=== PATIENT | male | born 1970 ===

== ENCOUNTER 2017-04-07 19:48 | Emergency (ER) | payer BC ==
[2017-04-07 20:04] VITALS: BP 147/82; PULSE 73; RESP 18; TEMP 98; O2SAT 100
--- NOTE | 2017-04-07 20:36 | ED PDOC ---
Lower Extremity Pain/Injury Time Seen by Provider: 04/07/17 19:58 Chief Complaint (Nursing): Lower Extremity Problem/Injury History Per: Patient History/Exam Limitations: no limitations Onset/Duration Of Symptoms: Other (2 months) Current Symptoms Are (Timing): Still Present Additional Complaint(s): Gino Gastelum, a 47 year old male, presents to the ED with left knee pain he has been experiencing for 2 months. The patient reports that 2 months prior to that he injured his knee in a twisting motion. He states that the pain worsens with movement and he takes motrin but it offers no relief. Denies numbness, tingling, calf pain. Past Medical History Reviewed: Historical Data, Nursing Documentation, Vital Signs Vital Signs: Last Vital Signs Temp 98 F 04/07/17 20:02 Pulse 73 04/07/17 20:02 Resp 18 04/07/17 20:02 BP 147/82 04/07/17 20:02 Pulse Ox 100 04/07/17 20:02 - Medical History PMH: Diabetes, HTN - Family History Family History: States: Unknown Family Hx - Home Medications Home Medications: Ambulatory Orders Medication Instructions Recorded Naproxen 500 mg PO BID PRN #20 tab 06/15/16 Meloxicam [Mobic] 1 - 2 tab PO DAILY PRN #15 tab 04/07/17 - Allergies Allergies/Adverse Reactions: Allergies Allergy/AdvReac Type Severity Reaction Status Date / Time No Known Allergies Allergy Verified 06/15/16 21:31 Review of Systems Musculoskeletal: Positive for: Other (Left knee pain;Denies numbness and tingling to knee; Denies calf pain.) Physical Exam - Reviewed Nursing Documentation Reviewed: Yes Vital Signs Reviewed: Yes - Physical Exam Appears: Positive for: Non-toxic, No Acute Distress Pulses-Dorsalis Pedis (L): 2+ Extremity: Positive for: Normal ROM, Deformity (NO deformity to left knee.), Other (No warmth or erythema to left knee; Left knee positive crepitus.). Negative for: Tenderness (No tendernes to left knee.), Calf Tenderness (No calf tenderness bilaterally.), Swelling (No swelling to left knee.) Neurologic/Psych: Positive for: Alert, Oriented, Gait - ECG O2 Sat by Pulse Oximetry: 100 (RA) Pulse Ox Interpretation: Normal Medical Decision Making Medical Decision Makin:58 Initial Impression: 47 year old male presenting with left knee pain Initial Plan: * Toradol 15mg IM Scribe Attestation Documented by Jenna Benton acting as a scribe for Antwan Orellana PA-C. Scribe Attestation All medical record entries made by the Scribe were at my direction and personally dictated by me. I have reviewed the chart and agree that the record accurately reflects my personal performance of the history, physical exam, medical decision making, and the department course for this patient. I have also personally directed, reviewed, and agree with the discharge instructions and disposition. Disposition - Clinical Impression Clinical Impression: Knee pain - Patient ED Disposition Is Patient to be Admitted: No Counseled Patient/Family Regarding: Studies Performed - Disposition Referrals: [facility] [Outside] Lilo Edmond MD [Staff Provider] - Disposition: Routine/Home Disposition Time: 20:29 Condition: STABLE Prescriptions: Meloxicam [Mobic] 1 - 2 tab PO DAILY PRN #15 tab PRN Reason: pain
== END 2017-04-07 20:39 | disposition home or self-care (01) ==
LOC: H.ER 19:48
DX: M25.562 Pain in left knee (principal)
CPT/HCPCS: 96372; 99283; J1885

== ENCOUNTER 2017-08-16 15:34 | Emergency (ER) | payer BC ==
[2017-08-16 15:47] VITALS: BP 175/91; PULSE 65; RESP 16; TEMP 98; O2SAT 100
--- NOTE | 2017-08-16 16:52 | ED PDOC ---
Upper Extremity Pain/Injury Time Seen by Provider: 08/16/17 15:48 Chief Complaint (Nursing): Upper Extremity Problem/Injury Chief Complaint (Provider): wrist pain History Per: Patient History/Exam Limitations: no limitations Additional Complaint(s): 47yo M in ED for eval of right wrist pain sustained 3d ago while playing baseball-state a baseball hit his wrist/forearm(volar) side-with mild pain with ROM and some swelling, bruising and itching to area. 3 FROM of digits and wrist. Past Medical History Reviewed: Historical Data, Nursing Documentation, Vital Signs Vital Signs: Last Vital Signs Temp 98.0 F 08/16/17 15:43 Pulse 65 08/16/17 15:43 Resp 16 08/16/17 15:43 BP 175/91 H 08/16/17 15:43 Pulse Ox 100 08/16/17 15:43 - Medical History PMH: Diabetes, HTN - Family History Family History: States: Unknown Family Hx - Home Medications Home Medications: Ambulatory Orders Medication Instructions Recorded Naproxen 500 mg PO BID PRN #20 tab 06/15/16 Meloxicam [Mobic] 1 - 2 tab PO DAILY PRN #15 tab 04/07/17 - Allergies Allergies/Adverse Reactions: Allergies Allergy/AdvReac Type Severity Reaction Status Date / Time No Known Allergies Allergy Verified 08/16/17 15:43 Review of Systems ROS Statement: Except As Marked, All Systems Reviewed And Found Negative Musculoskeletal: Positive for: Hand Pain Physical Exam - Reviewed Nursing Documentation Reviewed: Yes Vital Signs Reviewed: Yes - Physical Exam Appears: Positive for: Well, Non-toxic, No Acute Distress Skin: Positive for: Normal Color, Warm, DRY Cardiovascular/Chest: Positive for: Regular Rate, Rhythm Respiratory: Positive for: CNT, Normal Breath Sounds Extremity: Positive for: Other (right hand: bursing noted to volar apsect with mild swelling to radial side of wrist. FROM. no snuff box tenderness. ) Neurologic/Psych: Positive for: Alert, Oriented - ECG O2 Sat by Pulse Oximetry: 100 Medical Decision Making Medical Decision Making: Pt with negative xray for fracture placed in volar splint with f.u with pmd. ice and rest area. made aware that bruising may persistent for 1-2 weeks or worsened to apply ice to area and rest. Disposition - Clinical Impression Clinical Impression: Contusion - Patient ED Disposition Is Patient to be Admitted: No Counseled Patient/Family Regarding: Studies Performed, Diagnosis, Need For Followup - Disposition Referrals: [facility] [Outside] Disposition: Routine/Home Disposition Time: 16:54 Condition: STABLE Instructions: Contusion in Adults (ED)
--- NOTE | 2017-08-17 08:36 | RAD ---
PROCEDURE: Right Wrist Radiographs. HISTORY: injury COMPARISON: None. FINDINGS: BONES: No fracture identified. JOINTS: Normal carpal alignment maintained. Radiocarpal alignment is intact. SOFT TISSUES: There is bulging of the pronator fat indicating possible joint effusion or hemarthrosis. This suggests at least consideration of occult fracture. OTHER FINDINGS: None. IMPRESSION: No fracture identified. Probable joint effusion or hemarthrosis. Consider occult fracture. If there is continued clinical suspicion of fracture then evaluation should be pursued with magnetic resonance imaging or computed tomography.
== END 2017-08-16 17:01 | disposition home or self-care (01) ==
LOC: H.ER 15:34
DX: S60.211A Contusion of right wrist, initial encounter (principal); W22.8XXA Striking against or struck by other objects, initial encounter; Y92.321 Football field as the place of occurrence of the external cause